=== PATIENT | female | born 1990 | race Caucasian/White ===

== ENCOUNTER 2016-10-06 10:19 | Emergency (ER) | payer SELFPAY ==
[~2016-10-06] VITALS: Ht 177.8 cm; Wt 88.7 kg
[2016-10-06] MEDS ORDERED: SODIUM CHLORIDE FLUSH 10 ML SYR IV PRN (10:55)
[2016-10-06] MEDS ORDERED: ONDANSETRON 2 MG/ML (Z0FRAN) 2 ML VIAL IV ONE (10:55)
[2016-10-06] MEDS ORDERED: SODIUM CHLORIDE FLUSH 3 ML SYR IV PRN (10:55)
[2016-10-06 10:59] LABS: BILIRUBIN,URINE Negative (Negative); CLARITY,URINE Slightly Cloudy; COLOR,URINE Yellow; GLUCOSE, URINE (UA) Negative (Negative); LEUKOCYTE ESTERASE ,URINE Trace (Negative); PH,URINE 5.5 (5.0 - 8.0); UROBILINOGEN,URINE 0.2 mg/dL (0.2-1.0)
[2016-10-06 11:01] LABS: URINE CENTRIFUGED VOLUME 12 mL
[2016-10-06] MEDS ORDERED: HYDROmorphone 1 MG/ML (DILAUDID) SYRINGE IV ONE (11:15)
[2016-10-06 11:16] LABS: BASOPHILS % (AUTO) 0 % (0-2); EOSINOPHILS # (AUTO) 0.1 10^3uL; EOSINOPHILS % (AUTO) 2 % (0-4); LYMPHOCYTES # (AUTO) 1.5 X10^3; MEAN CORPUSCULAR HEMOGLOBIN 30.5 PG (26.0-34.0); MEAN CORPUSCULAR HGB CONC 34.5 g/dL (31.0-37.0); MEAN CORPUSCULAR VOLUME 88 FL (80-100); MEAN PLATELET VOLUME 10.9 FL (6.0-9.5); MONOCYTES # (AUTO) 0.8 X10^3; MONOCYTES % (AUTO) 10 % (3-11); NEUTROPHILS # (AUTO) 6.1 X10^3; NEUTROPHILS % (AUTO) 71 % (51-67); PLATELET COUNT 172 10^3uL (150-450)
[2016-10-06 11:37] LABS: ALBUMIN 3.3 g/dL (3.4-5.0); ANION GAP 13.2 MEQ/L (3-15); CALCULATED IONIZED CALCIUM 4.2 mg/dL (3.8-4.6); TOTAL PROTEIN 6.1 g/dL (6.4-8.5)
[2016-10-06 14:36] VITALS: BP 110/78
== END 2016-10-06 14:47 | disposition home or self-care (01) ==
LOC: EDUNIT# 10:19 → ED 10:21
DX: K52.9 Noninfective gastroenteritis and colitis, unspecified (principal); N39.0 Urinary tract infection, site not specified; E86.0 Dehydration
CPT/HCPCS: 36415; 76805; 80053; 81003; 81015; 82150; 83690; 85025; 86140; 87088; 96361; 96374; 96375; 99285; J1170; J2405; J7030; 87077; 87186; 99283

== ENCOUNTER → 2016-11-14 | Outpatient (REF) | payer MEDICAID ==
[~2016-11-14] MED LIST: ALBU6.7H INH; ALPR1TAB7 PO; CEPH-331 PO; CITA40TA5 PO; DOCU-243 PO; IBUP-1772 PO; LORA10TA76 PO; MTH10T PO; ONDAN4ODT PO; OXYC15TA PO; OXYC1TAB87 PO; OXYC20TA3 PO; PRED20TA PO; PREN1TAB76 PO; SERT50TA PO
[2016-11-14 11:32] LABS: AMPHETAMINE SCREEN, URINE Positive (Negative); CANNABINOID SCREEN, URINE Positive (Negative); METHAMPHETAMINE SCREEN URINE S NEGATIVE (NEGATIVE); OPIATE SCREEN URINE Negative (Negative)
[2016-11-14 11:33] LABS: PROPOXYPHENE STAT NEGATIVE (NEGATIVE)
== END ==
LOC: LAB 11:22
PROVIDERS: ATTEND Family Medicine
DX: Z34.83 Encounter for supervision of other normal pregnancy, third trimester (principal)
CPT/HCPCS: 80307; 86850; 86900; 86901